=== PATIENT | male | born 1955 | race Caucasian/White ===

== ENCOUNTER 2018-05-12 17:42 | Inpatient (IN) | payer OTHER ==
[~2018-05-12] VITALS: Ht 170.2 cm; Wt 110.6 kg
--- NOTE | ~2018-05-12 | HC ---
[facility] [place] [address] CONSULTATION Name: RICHI DAVALOS Room #: 202-P [facility] IN ..#: [id number] Admission: 05/12/18 Attend Phys: Ramy Villavicencio MD Discharge: Date of : 53 Report #: [id number] THIS REPORT FOR: //name// CC: Ramy Burgess DATE OF SERVICE: 05/14/2018 CHIEF COMPLAINT: Gluteal pressure ulcerations. HISTORY OF PRESENT ILLNESS: This is a 63-year-old male patient who is in the intensive care unit. He was admitted from a nursing care facility with possible dehydration. He was confused, a little bit combative. He does have a history of dementia. He can provide no information about himself at this time. ALLERGIES: INCLUDE ASPIRIN AND PENICILLIN. PAST MEDICAL AND SURGICAL HISTORY: Positive for paranoid schizophrenia with psychosis, anxiety, coronary artery disease, congestive heart failure. He has an AICD pacemaker, COPD, GERD, CKD, PVD with status post aortobifem bypass, left above-knee amputation and history of dementia. SOCIAL HISTORY: The patient has a history of current daily cigarette smoking. No alcohol use. FAMILY HISTORY: Unknown. MEDICATIONS: Include doxycycline, prednisone, atorvastatin, Colace, furosemide, quetiapine, Seroquel, Flexeril, Neurontin, Zyprexa, MiraLax, Altace, Xarelto, Pepcid, K-Dur, Toprol, Mucinex, Risperdal. REVIEW OF SYSTEMS: Unobtainable due to the patient's dementia. PHYSICAL EXAMINATION: VITAL SIGNS: At this time include temperature 97.7, pulse rate of 73, respiratory rate of 15, blood pressure 123/55. GENERAL: This is a chronically ill-appearing male patient who appears to be in no obvious distress. HEENT: Head normocephalic. Nose and throat are clear. NECK: Supple. ABDOMEN: Soft. Bowel sounds present. EXTREMITIES: Demonstrate a left above-knee amputation. He has 2 stage 3 pressure ulcers to the right gluteal region. They are relatively superficial. There is a mix of granulation fibrin, not overtly infected. No exposure of deep structures. [facility] [address] [place] [address] CONSULTATION Name: RICHI DAVALOS Room #: 202-P [facility] IN ..#: [id number] Admission: 05/12/18 Attend Phys: Ramy Villavicencio MD Discharge: Date of : 53 Report #: [id number] CLINICAL IMPRESSION: 1. Stage 3 pressure ulcer to the right gluteal region. 2. Prior right above-knee amputation, now closed. 3. Acute kidney injury. 4. Dementia. 5. Acute on chronic respiratory failure. 6. History of aortobifemoral bypass for severe peripheral arterial disease. 7. History of tobacco use. RECOMMENDATIONS: At this point in time, we will recommend a bordered foam to the buttocks. He will need a low air loss mattress, q. 2 hour turning and positioning, PRAFO boot to the right lower extremity. Aggressive nutrition. Continue current medications. I appreciate being asked to see him in consultation. By: 1520 0021 Richi Ralph MD /nt
[~2018-05-12 17:42] MED LIST: ABILIFY 5 MG TAB5 MG PO; ACETAMINOPHEN325 M1; ACID REDUCER20 MG PO; ALEVE220 MG; ATIVAN0.5 MG; ATIVAN1 MG; ATORVASTATIN CA20 MG PO; CIPRO250 M1 PO; COLACE100 MG PO; DOXYCYCLINE 10100 MG PO; DUONEB 2.5-0.5 M3 ML INH; ENOXAPARIN40 MG/0.1 SUBQ; FLAGYL500 MG PO; FLORANEX GRANU1 EACH PO; FUROSEMIDE 40 M40 M1 PO; HYDROCODON-ACE1 EAC7 PO; HYDROCODONE-AP1 EAC6 PO; KEFLEX500 MG PO; LISINOPRIL2.5 MG PO; LORAZEPAM 1 MG T1 M1 PO; METOPROLOL SUCC25 M1 PO; MIRALAX17 GM PO; MIRALAX255 GM PO; MUCINEX TA600 MG/TA2 PO; PLAVIX 75 MG TA75 M1 PO; POTASSIUM20 PO; PREDNISONE 20 M20 MG PO; QUETIAPINE FUM300 MG PO; RANITIDINE 150150 M1 PO; RISPERDAL 3 MG T3 M1 PO; RISPERDAL0.5 MG; RISPERDAL4 M1 PO; SEROQUEL 100 M100 MG PO; SEROQUEL XR400 MG PO; SEROQUEL400 MG PO
[2018-05-12 17:43] VITALS: BP 118/56
[2018-05-12 18:45] LABS: HEMATOCRIT 53.3 % (42.0-52.0); HEMOGLOBIN 17.7 gm/dL (14.0-18.0); MCH 29.3 pg (26.0-34.0); MCHC 33.3 g/dL (28.0-37.0); MCV 88.1 fL (80.0-100.0); PLATELET COUNT 141 thou/uL (150-400); RBC 6.04 mil/uL (4.50-6.00); RDW 18.8 % (10.5-14.5); WBC 8.2 thou/uL (4.0-11.0)
[2018-05-12 18:56] LABS: ANION GAP 4 mmol/L (7-16); BUN 41 mg/dL (7-18); CALCIUM 8.4 mg/dL (8.5-10.1); CHLORIDE 100 mmol/L (98-107); CO2 32 mmol/L (21-32); CREATININE 1.9 mg/dL (0.7-1.3); GLUCOSE 117 mg/dL (74-106); POTASSIUM 5.1 mmol/L (3.5-5.1); SODIUM 136 mmol/L (136-145)
[2018-05-12 19:00] LABS: TROPONIN-I <0.06 ng/mL (<0.06)
--- NOTE | 2018-05-12 19:11 | NUR ---
MULTIPLE CALLS TO [facility] FOR [facility] WITHOUT ANY CON TACT : CALLS PLACED AT 1825, 182, 182- WAS DISCONNECTED TWICE, PLACED A CALL TO [facility] TO CHECK ON ASSISTED - THEY ARE NOT ABLE TO GO OUT AT PRESENT. CONTACTED EMS [facility][id number] UNIT. MANAGER SCIENTIFIC REPORTS HE NEVER GOT A REPORT FROM NURSE. NO ONE TALKED WITH HIM AT FACILITY. HE STATES PT HAD O2 SAT OF 87 % ON 4 L WHEN HE ARRIVED, HE REPOSITIONED PATIENT AND INCREASED O2 TO 6 L WITH ELEVATION IN SAT TO 93%. HE BELIEVES PT IS ON O2 CONTINUOUSLY. INFORMATION RELAYED TO DR JARAMILLO. JORGE L
--- NOTE | 2018-05-12 19:18 | NUR ---
PT WILL BE ADMITTED
[2018-05-12 19:30] LABS: ANISOCYTOSIS 1+
[2018-05-12 20:07] VITALS: BP 120/68; BP 122/72
[2018-05-12 21:25] VITALS: BP 128/72
[2018-05-12] MEDS ORDERED: TYLENOL EXTRA500 MG PO (23:35)
[2018-05-12] MEDS ORDERED: CYCLOBENZAPRINE5 MG PO (23:37)
[2018-05-12] MEDS ORDERED: DOXYCYCLINE 10100 MG PO (23:41)
[2018-05-12] MEDS ORDERED: NEURONTIN 300300 M1 PO (23:43)
[2018-05-12] MEDS ORDERED: ZYPREXA 5 MG TAB5 M1 PO (23:45)
[2018-05-12] MEDS ORDERED: MIRALAX17 GM PO (23:46)
[2018-05-12] MEDS ORDERED: ALTACE10 MG PO (23:50)
[2018-05-12] MEDS ORDERED: XARELTO20 MG PO (23:54)
[2018-05-12] MEDS ORDERED: AMLODIPINE BESY10 MG PO (23:56)
[2018-05-13] VITALS (14 sets, daily range): BP systolic 104–142; BP diastolic 56–93
[2018-05-13] MEDS ORDERED: PEPCID20 MG PO
[2018-05-13 04:52] LABS: BE(vivo) 3.3 mmol/L (-2 to +3); HCO3 33.8 mmol/L (22.0-26.0); PO2 65.2 mmHg (80.0-100.0); sO2 88.9 % (92.0-98.0)
[2018-05-13 04:53] LABS: pH 7.262 (7.360-7.450)
[2018-05-13 04:54] LABS: PCO2 76.8 mmHg (35.0-45.0)
--- NOTE | 2018-05-13 06:42 | NUR ---
Received pt from ED at 2130. Pt resting in bed. Alert to self. Skin tears on right buttocks. Applied dressing on it. Pt was hard arouse when COMMUNITY ADVOCATE showed up, she order ABG. pH came back 7.26 and pCO2 76.8 so COMMUNITY ADVOCATE order Bipap. Pt has a right forearm IV with NS@80. No identified needs at the moment. Will continue to monitor.
[2018-05-13 07:39] LABS: BE(vivo) 0.2 mmol/L (-2 to +3); HCO3 29.7 mmol/L (22.0-26.0); PCO2 67.9 mmHg (35.0-45.0); PO2 64.4 mmHg (80.0-100.0); pH 7.259 (7.360-7.450); sO2 88.7 % (92.0-98.0)
--- NOTE | 2018-05-13 08:20 | EKG ---
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 : 1955 Requested By: Luis Miguel Oreilly Order Number: [id number] MD: Arnie Schroeder Measurements Intervals [place] Rate: 68 P: 83 WA: 181 QRS: 42 QRSD: 134 T: -12 QT: 376 QTc: 400 Interpretive Statements Sinus rhythm Nonspecific intraventricular conduction delay Borderline T abnormalities, inferior leads Compared to ECG 08/31/2015 21:11:58 Criteria for inferior infarct no longer present Electronically Signed On 05-13-2018 8:19:51 OFFENDER EMPLOYMENT SPECIALIST by Arnie Schroeder [email or web address] <ELECTRONICALLY SIGNED> By: Arnie Schroeder MD, [facility] [id number] Arnie Schroeder MD, [facility] /EPI
--- NOTE | 2018-05-13 09:32 | NUR ---
INSERTED DRISCOLL, STERILE FIELD MAINTAINED. PT TOLERATED WELL. CLINICAL SUPERVISION BY RN. OUTPUT 375 ML. LINENS WERE CHANGED AND BILATERAL UPPPER EXTREMILY RESTRAINTS BACK IN PLACE. PATIENT ORIENTED TO PERSON AND PLACE.
--- NOTE | 2018-05-13 10:04 | NUR ---
WHILE RECEIVNG A REPORT FROM NOC RN AROUND 0700, FOUND OUT PT PUT ON CONT BIPAP DURING NOC, D/T CRITICAL ABG. PER NOC RN, PT IS ALERT AND ORIENTED ONLY TO HIMSELF. CALLED [facility] MAJOR AND NOTIFIED THAT PT HAS TO BE TRANSFERRED TO CRITICAL CARE FLOOR. CALLED AND OBTAINED AN ORDER TO TRANSFER PT TO 3W. WHILE GETTING PT READY FOR 3W, PT BECAME VERY AGITATED AND STARTED TAKING ALL MEDICAL DEVICES AND BIPAP OFF HIMSELF. PT HAD IVF, TELE MONITOR AND BIAPAP ATTACHED TO HIM AWATING TASNSFER. CALLED AND OBTAINED AN ORDER FOR SOFT JOINT RESTRAINTS FOR PT FOR NONVIOLENT BEHAVIORS FOR 24HRS STARTING 730. REPORTED TO [facility] VIA TELEPHONE ABOUT THE RESTRAINT AND TRASFER. REPORT WAS CALLED TO [facility]. TRANSPORT WAS ACCOMPANIED BY RT LUNA FOR SAFE TRASFER AND MAINTAIN BIPAP STATUS DUTING TRANSFER. PT IS NOW IN 364.
[2018-05-13 10:46] LABS: BE(vivo) 5.1 mmol/L (-2 to +3); HCO3 36.9 mmol/L (22.0-26.0); PO2 102.8 mmHg (80.0-100.0); sO2 96.5 % (92.0-98.0)
[2018-05-13 10:47] LABS: PCO2 85.6 mmHg (35.0-45.0); pH 7.252 (7.360-7.450)
--- NOTE | 2018-05-13 13:31 | NUR ---
REPORT RECEIVED FROM [facility] FROM 3W. PT ARRIVED TO UNIT AROUND 1310. PT ON BiPAP AT 18/4 WITH 50% FiO2. PT IS LETHARGIC AND IS NOT RESPONDING TO PHYSICAL STERNAL RUB AT THIS TIME. ASSESSMENT IN CHART. WILL CONT TO MONITOR AND FOLLOW POC.
--- NOTE | 2018-05-13 13:34 | NUR ---
ASSUMED PATIENT CARE FROM [facility]. PATIENT PLACED ON BIPAP AT AROUND 0500. ABGS DRAWN AT 0430, 0730, AND 1050. ABG'S WORSENING AT 1050. DR. CUNHA ORDERED FOR PATIENT TO BE TRANSFERRED TO ICU. REPORT GIVEN TO ASCENCION HERMOSILLO AND PATIENT TRANSFERRED WITH RT'S ASSISTANCE.
[2018-05-13 14:52] LABS: BE(vivo) 2.8 mmol/L (-2 to +3); PO2 82.4 mmHg (80.0-100.0); sO2 94.4 % (92.0-98.0)
[2018-05-13 14:53] LABS: PCO2 72.6 mmHg (35.0-45.0); pH 7.276 (7.360-7.450)
[2018-05-13 15:38] LABS: AMP/METHAMP Negative (Negative); BARBITURATES Negative (Negative); BENZODIAZEPINES Negative (Negative); COCAINE Negative (Negative); METHADONE Negative (Negative); OPIATES Negative (Negative); PCP Negative (Negative)
--- NOTE | 2018-05-13 23:38 | NUR ---
NOTIFIED JEANETTE FLORES OF PT'S CONTINUED RESTLESSNESS AND FIGHTING AGAINST RESTRAINTS, KICKING LEG OVER SIDERAIL AND SLIDING DOWN IN THE BED DESPITE FREQ REPOSITIONING AND ONE DOSE OF HALDOL. ORDER RECEIVED FOR ADDITIONAL DOSE OF HALDOL 5MG IVP.
[2018-05-14] VITALS (15 sets, daily range): BP systolic 96–123; BP diastolic 49–61
[2018-05-14 01:19] LABS: ABSOLUTE NEUTROPHILS 9.1 thou/uL (1.4-8.2); BASOPHILS 0.1 % (0.0-2.0); EOSINOPHILS 0.1 % (0.0-3.0); HEMATOCRIT 52.4 % (42.0-52.0); HEMOGLOBIN 17.4 gm/dL (14.0-18.0); LYMPHOCYTES 3.4 % (24.0-44.0); MCH 29.1 pg (26.0-34.0); MCHC 33.2 g/dL (28.0-37.0); MCV 87.8 fL (80.0-100.0); MONOCYTES 1.5 % (1.0-8.0); PLATELET COUNT 141 thou/uL (150-400); POLYS 94.9 % (36.0-66.0); RBC 5.96 mil/uL (4.50-6.00); RDW 18.5 % (10.5-14.5); WBC 9.5 thou/uL (4.0-11.0)
[2018-05-14 01:26] LABS: CALCIUM 8.8 mg/dL (8.5-10.1); CREATININE 1.5 mg/dL (0.7-1.3); POTASSIUM 5.1 mmol/L (3.5-5.1)
--- NOTE | 2018-05-14 07:26 | NUR ---
ASSUMED CARE OF PT AT 1900. ASSESSMENTS PER DOCUMENTATION. VSS, NO DISTRESS NOTED. MRSA SWAB PENDING. FINGERSTICKS WNL. IV ABX. PT ORIENTED TO SELF ONLY, INCREASED RESTLESSNESS/AGITATION AT HS REQUIRING RESTRAINTS AND HALDOL X2. PT IS A. PACING AT TIMES AND SR 70'S TO SB 50'S, PT DID HAVE ONE RUN OF V TACH 7 BEATS, STRIP PLACED ON CHART. PT ON AVAPS BIPAP MODE, RATE 18, 50% FIO2, KEPT O2 SAT AROUND 90%, PT TOLERATED WELL. PT TOOK HS MEDS W/O DIFFICULTY, NO ISSUES SWALLOWING. ADEQUATE UOP OF 600ML PER DRISCOLL. WOUND CARE CONSULT ENTERED FOR TODAY, 2 OPEN AREAS ON RIGHT BUTTOCK, ATTEMPTED Q2H TURNS BUT PT IS RESTLESS AND SLIDES HIMSELF ALL OVER THE BED. AM LABS WNL.
--- NOTE | 2018-05-14 09:20 | 2DMMODE ---
[facility] [place] [address] 2 D/M-MODE ECHOCARDIOGRAM Name: RICHI DAVALOS Room #: 245-P [facility] IN ..#: [id number] Admission: 05/12/18 Attend Phys: Ramy Villavicencio MD Discharge: Date of : 53 Date of Service: 05/14/18 0920 Report #: [id number] THIS REPORT FOR: //name// APPROVED REPORT Study performed: 05/14/2018 08:15:23 EXAM: Comprehensive 2D, Doppler, and color-flow Echocardiogram Patient Location: ICU Room #: [facility] Status: routine BSA: 2.18 HR: 55 bpm BP: 106/61 mmHg Rhythm: NSR Other Information Study Quality: Fair/poor patient cooperation Technically limited study due to no mobility, patient on BiPAP, obesity. Indications Hypoxia, dyspnea. Hx: AICD, CAD, CHF, CM, HTN, HLP, PVD, left AKA. Echo Enhancing Agent Indication: Endocardial border delineation Agent(s) / Amount(s) Used: Optison 5 cc 2D Dimensions RVDd: 40.31 mm IVSd: 12.42 (7-11mm) LVOT Diam: 22.09 (18-24mm) LVDd: 59.83 mm PWd: 8.59 (7-11mm) Ascending Ao: 34.82 (22-36mm) LVDs: 51.78 (25-40mm) Aortic Root: 33.32 mm Volumes Left Atrial Volume (Systole) Single Plane 4CH: 40.34 mL Single Plane 2CH: 57.57 mL LA ESV Index: 20.00 mL/m2 Aortic Valve AoV Peak Delfino.: 2.26 m/s AO Peak Gr.: 20.39 mmHg LVOT Max P.90 mmHg [facility] [place] [address] 2 D/M-MODE ECHOCARDIOGRAM Name: RICHI DAVALOS Room #: 245-P [facility] IN M.R.#: [id number] Admission: 05/12/18 Attend Phys: Ramy Villavicencio MD Discharge: Date of : 53 Date of Service: 05/14/18 0920 Report #: [id number] Mean Gr.: 12.53 mmHg AO V2 Mean: 1.66 m/s LVOT Max V: 0.85 m/s AO V2 VTI: 50.59 cm CHIRAG Vmax: 1.45 cm2 Mitral Valve E/A Ratio: 1.2 MV Decel. Time: 163.99 ms MV E Max Delfino.: 0.96 m/s MV A Delfino.: 0.83 m/s MV PHT: 47.56 ms IVRT: 73.82 ms Pulmonary Valve PV Peak Delfino.: 1.02 m/s PV Peak Gr.: 4.18 mmHg Tricuspid Valve TR Peak Delfino.: 3.31 m/s RAP Estimate: 15.00 mmHg TR Peak Gr.: 43.70 mmHg PA Pressure: 59.00 mmHg Left Ventricle Left ventricle is mildly dilated. Mild septal hypertrophy is present. Left ventricular systolic function is moderately decreased. Inferior and inferolateral akinesis LVEF is 35%. Moderate diastolic dysfunction is present (pseudonormal filling). Right Ventricle The right ventricle is normal size. The right ventricular systolic function is normal. Device lead is present in the right ventricle. Atria The left atrium size is normal. The right atrium size is normal. Aortic Valve Aortic valve is mildly calcified. No aortic regurgitation is present. There is mild valvular aortic stenosis. Calculated aortic valve area is 1.4 cm2 with maximum pressure gradient of 20 mmHg and mean pressure gradient of 13 mmHg. Mitral Valve The mitral valve is normal in structure. Mild mitral regurgitation. Tricuspid Valve [facility] [address] [place] [address] 2 D/M-MODE ECHOCARDIOGRAM Name: RICHI DAVALOS Room #: 245-P [facility] IN ..#: [id number] Admission: 05/12/18 Attend Phys: Ramy Villavicencio MD Discharge: Date of : 53 Date of Service: 05/14/18 0920 Report #: [id number] The tricuspid valve is normal in structure. Mild to moderate tricuspid regurgitation. Estimated PAP is 55-60mmHg. Pulmonic Valve The pulmonary valve is normal in structure. Trace pulmonic regurgitation. Great Vessels The aortic root is normal in size. The ascending aorta is normal in size. IVC is dilated and collapses <50% with inspiration. Pericardium There is no pericardial effusion. <Conclusion> Left ventricular systolic function is moderately decreased. Inferior and inferolateral akinesis LVEF is 35%. Moderate diastolic dysfunction Device lead is present in the right ventricle. Aortic valve is mildly calcified, mild valvular aortic stenosis, no insufficiency. Calculated aortic valve area is 1.4 cm2 with maximum pressure gradient of 20 mmHg and mean pressure gradient of 13 mmHg. The mitral valve is normal in structure. Mild mitral regurgitation. Mild to moderate tricuspid regurgitation. Estimated pulmonary artery presusre of 55-60mmHg. There is no pericardial effusion. <ELECTRONICALLY SIGNED> By: Arnie Schroeder MD, FACC 05/14/18919 9 9 Arnie Schroeder MD, FACC /INF
[2018-05-14 11:26] LABS: BE(vivo) 6.9 mmol/L (-2 to +3); HCO3 35.3 mmol/L (22.0-26.0); PCO2 63.3 mmHg (35.0-45.0); PO2 74.2 mmHg (80.0-100.0); pH 7.364 (7.360-7.450); sO2 94.1 % (92.0-98.0)
--- NOTE | 2018-05-14 15:05 | NUR ---
Case opened to follow for dc planning. Pt is currently in ICU and was on confused and on bipap this am. He is more alert this afternoon. He is a retirement care resident at [facility] and has lived there since 2010. He is currently on their locked behavioral unit d/t his mental health dx. He utilizes a w/c d/t a lt AKA in 2017. He has a complex medical history. His sister Luba is the primary contact and is noted to be his dpoa; however no document is on file. Sleeping Car Service Attendant spoke with admissions at the facility and they are holding his bed and will see if they can fax supporting documentation from his chart. He has another sister Jane and two brothers. Psych consult noted d/t aggitation. Will follow along and assist with his return to terminal gauger supervisor care when medically stable. Message to contact luis antonio left for sister Luba. Will follow.
--- NOTE | 2018-05-14 17:02 | NUR ---
WOUND CONSULT: PT. WAS SEEN TODAY BY DR. WOOD AND MYSELF. PT. HAS STAGE 3 PRESSURE ULCER TO HIS RIGHT BUTTOCK. THERE ARE NO SIGNS OR SYMPTOMS ASSOCIATED WITH THE WOUND AT THIS TIME. RECOMMENDATIONS: WOUND CARE TO RIGHT BUTTOCK: GENTLY CLEANSE WITH WOUND CLEANSER OR NORMAL SALINE, COVER WITH OPTIFOAM BORDER, COMPLETE CARES M/W/F AND PRN SOILAGE. PT. AND STAFF NURSE WERE INSTRUCTED ON WOUND CARE.
--- NOTE | 2018-05-14 18:25 | NUR ---
SPOKE WITH DR MALIK AT BEDSIDE REGARDING INCREASED AGGITATION AND RESTLESSNESS, GAVE PRN DOSE OF ZYPREXA. PT CURRENTLY IN RESTRAINTS AT THIS TIME. WILL MONITOR CLOSELY.
--- NOTE | 2018-05-14 19:39 | HC ---
[facility] [place] [address] CONSULTATION Name: RICHI DAVALOS Room #: 245-P [facility] IN .R.#: [id number] Admission: 05/12/18 Attend Phys: Ramy Villavicencio MD Discharge: Date of : 53 Report #: [id number] THIS REPORT FOR: //name// CC: Ramy Burgses DATE OF SERVICE: 05/13/2018 REFERRAL PHYSICIAN: Dr. Villavicencio. REASON FOR REFERRAL: Acute respiratory distress. HISTORY OF PRESENT ILLNESS: The patient is a 63-year-old [facility] patient with dementia, brought to the Emergency Room with unclear complaints. Eventually, the reason for the referral was for IV placement. The patient was subsequently admitted for dehydration, acute kidney injury. Overnight, the patient developed worsening respiratory status. A pulmonary consultation was requested. As mentioned above, [facility]. He was brought to the Emergency Department with unclear complaints. It was apparent that they needed an IV access in this patient. In the process of evaluation, electrolytes showed acute kidney injury along with some component of dehydration. The patient is a poor historian. He has a history of paranoid schizophrenia along with coronary artery disease, COPD. Early this morning, the patient was found to be hypoxic, dyspneic. BiPAP was placed. He was in telemetry. He was subsequently transferred to critical care tele on BiPAP. When I was asked to see the patient, he is on BiPAP, but not responsive with sternal stimuli. He was eventually transferred to the ICU. PAST MEDICAL HISTORY: Notable for paranoid schizophrenia, anxiety disorder, coronary artery disease, cardiomyopathy, hypertension, status post pacemaker placement, COPD, gastroesophageal reflux disease, chronic kidney disease, peripheral artery disease, undergoing aortobifemoral bypass surgery in 2013 with a left femoral graft placement in 2016, history of hyperlipidemia. ALLERGIES: ASPIRIN AND PENICILLIN, REACTIONS NOT SPECIFIED. MEDICATIONS: From the [facility] include lorazepam, Cipro, Flagyl, DuoNeb, Lovenox, Colace, Lasix, quetiapine, Keflex, Seroquel, potassium chloride, Toprol-XL, Abilify, Mucinex, Risperdal. [address] [address] CONSULTATION Name: RICHI DAVALOS Room #: 245-P [facility] IN ..#: [id number] Admission: 05/12/18 Attend Phys: Ramy Villavicencio MD Discharge: Date of : 53 Report #: [id number] FAMILY HISTORY: Unknown. SOCIAL HISTORY: The patient apparently continues to smoke. No history of alcohol use. He is a [facility]. REVIEW OF SYSTEMS: Deferred as the patient is somnolent, although along with apparent history of dementia. PHYSICAL EXAMINATION: GENERAL: He is somnolent, not arousable easily. VITAL SIGNS: Temperature is 97 degrees Fahrenheit, pulse is 70, respiratory rate is 14, blood pressure 140/79 mmHg and saturation 96%. HEENT: Normocephalic, atraumatic. NECK: Supple, without lymphadenopathy or thyromegaly. CHEST: Breath sounds are fair, mild coarse breath sounds in the bases. No obvious wheezes. CARDIOVASCULAR: Normal S1, S2. There are no murmurs or gallop. There is no JVD. There is no carotid bruit. Pulses are 2+/4+ bilaterally. ABDOMEN: Soft, nontender, no organomegaly or masses felt. GENITOURINARY: Deferred. RECTAL: Deferred. EXTREMITIES: No cyanosis, clubbing or edema. NEUROLOGIC: Again, he is obtunded at this time. LABORATORY DATA: Chest x-ray shows cardiomegaly, increased pulmonary vascular markings. BNP 947. Troponin is normal. Arterial blood gas earlier this morning revealed pH 7.26, pCO2 of 76, pO2 of 65. Repeat arterial blood gas revealed pH 7.25, pCO2 of 85, pO2 of 100 on FiO2 of 60% on BiPAP. Electrolytes: Sodium 136, potassium 5.1, chloride 100, CO2 32, BUN is 41, creatinine is 1.9. WBC 8200, hemoglobin 17.7, platelets are mildly reduced. IMPRESSION: 1. Tqrok-vr-hvxvrtc hypercapnic hypoxic respiratory failure in this 63-year-old white male. Etiology probably related to encephalopathy along with underlying chronic obstructive pulmonary disease exacerbation. 2. Chronic obstructive pulmonary disease exacerbation. 3. Paranoid schizophrenia with encephalopathy at present. 4. Acute kidney injury/chronic kidney disease. 5. Apparent history of dementia. This may need to be reassessed. 6. Borderline polycythemia. 7. Increase in vascular markings, unclear whether the patient truly has infiltrates. 8. History of coronary artery disease, cardiomyopathy, status post permanent pacemaker placement. 9. Gastroesophageal reflux disease. 10. Peripheral artery disease. [address] [place] [address] CONSULTATION Name: RICHI DAVALOS Room #: 245-P [facility] IN M.R.#: [id number] Admission: 05/12/18 Attend Phys: Ramy Villavicencio MD Discharge: Date of : 53 Report #: [id number] RECOMMENDATION: We will continue BiPAP for now, agree with corticosteroids, bronchodilators, wean O2 for saturation 90%. Follow electrolytes closely along with the urine output. DVT and GI prophylaxis is recommended. Thank you for this consultation. <ELECTRONICALLY SIGNED> By: Wilmer Chapin MD 05/14/18 [id number] Wilmer Chapin MD /nt
--- NOTE | 2018-05-14 22:30 | NUR ---
SPOKE W/ DR. CUNHA AND JEANETTE Fletcher PT CAN TRANSFER TO CCT W/ SITTER 1:1
[2018-05-15] VITALS (15 sets, daily range): BP systolic 104–136; BP diastolic 52–80
[2018-05-15 04:40] LABS: ABSOLUTE NEUTROPHILS 11.1 thou/uL (1.4-8.2); BASOPHILS 0.1 % (0.0-2.0); HEMATOCRIT 58.4 % (42.0-52.0); HEMOGLOBIN 18.8 gm/dL (14.0-18.0); LYMPHOCYTES 5.1 % (24.0-44.0); MCH 28.5 pg (26.0-34.0); MCHC 32.2 g/dL (28.0-37.0); MCV 88.6 fL (80.0-100.0); MONOCYTES 6.3 % (1.0-8.0); PLATELET COUNT 131 thou/uL (150-400); POLYS 88.5 % (36.0-66.0); RBC 6.59 mil/uL (4.50-6.00); RDW 18.9 % (10.5-14.5); WBC 12.5 thou/uL (4.0-11.0)
[2018-05-15 04:51] LABS: CALCIUM 9.1 mg/dL (8.5-10.1); CREATININE 1.6 mg/dL (0.7-1.3); MAGNESIUM 2.3 mg/dL (1.8-2.4); POTASSIUM 4.8 mmol/L (3.5-5.1); TOTAL BILIRUBIN 0.9 mg/dL (<0.1-1.0); TOTAL PROTEIN 8.4 g/dL (6.4-8.2)
--- NOTE | 2018-05-15 05:35 | NUR ---
ASSUMED CARE OF PT AT 1900. ASSESSMENTS PER DOCUMENTATION. VSS, NO DISTRESS NOTED. PT ON 8L HIGH FLOW NC W/ SATS 89-93%. PT RESTLESS BUT ALSO HAS PERIODS OF BEING INTERMITTENTLY PLEASANT. ADVANCED DIET TOLERATED, NO S/S ASPIRATION. PT STILL REMAINS CONFUSED AND IN RESTRAINTS, PT DID GRAB DRISCOLL CATHETER AT ONE POINT AND WAS PULLING IT, URINE WAS NOTED TO BE BLOOD TINGED FOR A WHILE BUT HAS CLEARED UP THIS MORNING. PT DOES FOLLOW COMMANDS AND GRAVES. PT REMAINS IN NSR/SB AND A. PACED AT TIMES. MINIMAL EDEMA. PT WAS INCONTINENT OF ONE SMALL BM OVERNIGHT. ADEQUATE UOP PER DRISCOLL. PT DOED HAVE 2 SMALL AREAS ON RIGHT BUTTOCK COVERED W/ OPTIFOAM, ATTEMPTED Q2H TURNS BUT PT MOVES INDEPENDENTLY FREQUENTLY. PT WAS ABLE TO BE REDIRECTED MORE TONIGHT THAN PREVIOUS SHIFTS. PT DID REQUIRE ONE PRN DOSE OF OLANZIPINE.
--- NOTE | 2018-05-15 09:53 | NUR ---
Assess due to notification of pressure ulcer-has Stage III to coccyx, followed by wound care team. Hx schizophrenia. Requires restraints, sitter. Typically eats well. Some variations in wts but no concerns. Will order bradley bid, otherwise low nutrition risk
--- NOTE | 2018-05-15 10:13 | NUR ---
PATIENT HAS BEEN QUITE THIS AM. CONT ON RESTRAINTS FOR AGITATION. HE DENIES PAIN AT THIS TIME. ATE BREAKFAST 100%. CONT ON OXY VIA NC. WILL CONT WITH PLAN OF CARE.
--- NOTE | 2018-05-15 12:41 | NUR ---
WOUND FOLLOW UP: PT. WAS SEEN TODAY BY DR. BAGLEY AND MYSELF. PT. WOUND IS STABLE AT THIS TIME. RECOMMENDATIONS: CONTINUE WITH CURRENT PLAN OF CARE. PT. AND STAFF NURSE WERE INSTRUCTED ON PLAN OF CARE.
--- NOTE | 2018-05-15 15:23 | NUR ---
Following for d/c planning needs. Called flight operation coordinator at [facility] (Avis Koroma) and was given phone numbers for several family members. Called pt's sister Luba Castro ([phone]) and left message. Called pt's sister Tona Cutcarmel ([phone]) and that is not working number. Was also given phone number for Adry (unknown family member) ([phone]) and that also is not working number. Called Hank Dave, who is listed at facility as POA ([phone]). Hank said that he is pt's family, and he was not aware that he is listed as POA. Hank said he would try to get in contact with pt's sister Luba to have her call the hospital. Will remain available to assist as needed.
--- NOTE | 2018-05-15 19:04 | NUR ---
END OF SHIFT NOTE. PT REMIANS VERY CONFUSED TODAY. BITING TRHROUGH MULTIPLE THINGS. UNRESTRAINED FOR MEALS AND FEEDS SELF. REMIANS ON 6L. DIFFICULT TO MAINTAIN SAT, PT CONSTANTLY TAKING IT OFF. VS OTHERWISE STABLE.
[2018-05-15 23:09] LABS: GLYCOHEMOGLOBIN (HGB A1C) 6.8 % (4.8-5.6)
--- NOTE | 2018-05-16 01:46 | NUR ---
CALLED REPORT AT 0146. PATIENT IS ALERT TO SELF. PATIENT IS ON 5L HIGH FLOW NC. PATIENT HAS A DRISCOLL. PATIENT IS BARRY ON TELE A PACED. PAITENT IS IN RESTRAINTS FOR INTERFERANCE WITH EQUIPMENT. PATIENT DENIES PAIN. PATIENT IS CONFUSED BUT PLEASENT. PATIENT IS BEING TRANSFER TO CCU WCM. PATIENT IS PROGRESSING TO GOALS.
[2018-05-16 04:05] VITALS: BP 127/75
--- NOTE | 2018-05-16 05:32 | NUR ---
ASSUME CARE 0230. PT/VITALS STABLE. PT ONLY ALERT TO PERSON. WHEEL CHAIR BOUND BUT MOVES IN BED BY SELF. LEFT AKA. ASSESSMENT AAS CHARTED. PT IN RESTRAINTS AND FURTHER ASSESSMETN TO BE DONE TO SEE IF RESTRAINTS ARE TO BE TAKE OFF. SITTER NEEDED TO MONITOR PT. PT SEEMS CALM AND IS REST WELL. WILL CONTINUE TO MONITOR AND FOLLOW WITH POC
[2018-05-16 05:54] LABS: HEMATOCRIT 52.7 % (42.0-52.0); HEMOGLOBIN 17.3 gm/dL (14.0-18.0); MCH 28.8 pg (26.0-34.0); MCHC 32.8 g/dL (28.0-37.0); MCV 87.7 fL (80.0-100.0); RBC 6.01 mil/uL (4.50-6.00); RDW 18.5 % (10.5-14.5); WBC 9.5 thou/uL (4.0-11.0)
[2018-05-16 06:06] LABS: ALBUMIN 2.5 g/dL (3.4-5.0); CALCIUM 8.7 mg/dL (8.5-10.1); CREATININE 1.3 mg/dL (0.7-1.3); PHOSPHORUS 4.1 mg/dL (2.5-4.9); POTASSIUM 4.6 mmol/L (3.5-5.1)
[2018-05-16 08:34] VITALS: BP 138/66
--- NOTE | 2018-05-16 11:44 | NUR ---
FAXED CLINICAL UPDATE TO LIZ AT CENTER SHE RECEIVED UPDATE AND NOTIFIED HER OF POSS.DC SATURDAY. DCP TO FOLLOW.
[2018-05-16 12:31] VITALS: BP 133/65
--- NOTE | 2018-05-16 12:58 | NUR ---
Message rec'd from the pt's sister Luba as she was attempting to return CM's call from yesterday. Message left for pt's sister Luba and alerted her to possible dc back to [facility] on Saturday. Nursing indicates that they spoke with the pt's sister earlier today also. Will follow.
--- NOTE | 2018-05-16 16:49 | NUR ---
WOUND FOLLOW UP: PT. WAS SEEN TODAY BY DR. WOOD AND MYSELF. PT. WOUND IS CLINICALLY BETTER TODAY. RECOMMENDATIONS: CONTINUE WITH CURRENT PLAN OF CARE. PT. AND STAFF NURSE WERE INSTRUCTED ON PLAN OF CARE.
[2018-05-16 19:15] VITALS: BP 122/66
[2018-05-17 03:46] VITALS: BP 125/71
[2018-05-17 05:32] LABS: ALBUMIN 2.7 g/dL (3.4-5.0); CREATININE 1.4 mg/dL (0.7-1.3)
[2018-05-17 07:10] VITALS: BP 143/82
--- NOTE | 2018-05-17 07:52 | NUR ---
ASSUME CARE 1900. PT STABLE. DENIES ANY PAIN. A/O TO PERSON ONLY. DENIES ANY PAIN. RESTING WELL THROUGH THE NIGHT. SITTER IN ROOM WITH PATIENT. PT SEEMS CALM WITH NO AGITATION BUT PULLS ON MEDICAL EQUIPMENT FROM TIME TO TIME. WILL CONTINUE TO MONITOR AND FOLLOW WITH POC
[2018-05-17 12:00] VITALS: BP 123/73
[2018-05-17 16:05] VITALS: BP 98/56
[2018-05-17 19:33] VITALS: BP 116/60
[2018-05-18 03:38] VITALS: BP 110/49
--- NOTE | 2018-05-18 04:02 | NUR ---
ASSESSMENTS CHARTED. SITTER CANCELLED AT START OF SHIFT. PATIENT HAS BEEN APPROPRIATE DURING SHIFT. PLAN OF CARE IS TO DISCHARGE BACK TO [facility] ON SATURDAY.
[2018-05-18 07:20] VITALS: BP 131/71
[2018-05-18 11:55] VITALS: BP 128/66
[2018-05-18 15:55] VITALS: BP 115/60
--- NOTE | 2018-05-18 16:52 | NUR ---
assessments as documented. pt alert and oriented to self only. confused/forgetful but pleasant. no episodes of agitation. sinus rhythm/duane on the monitor - occasionally A-paced. denies any pain or discomfort. javier removed per dr. yusuf. plan for patient to discharge back to facility tomorrow 03/18.
[2018-05-18 20:10] VITALS: BP 119/62
[2018-05-19 04:30] VITALS: BP 129/67
--- NOTE | 2018-05-19 06:19 | NUR ---
ASSESSMENTS CHARTED. PATIENT CONTINUES TO DIURESE DURING SHIFT. USING URNINAL. PLAN OF CARE IS TO CONINUE DIRURESING. SCHEDULED TO RETURN TO SNF TODAY.
[2018-05-19 07:20] VITALS: BP 125/72
[2018-05-19] MEDS ORDERED: SEROQUEL 100 M100 M1 PO (08:31)
[2018-05-19] MEDS ORDERED: ZYPREXA 5 MG TAB5 M1 PO (08:31)
[2018-05-19] MEDS ORDERED: PREDNISONE 20 M20 MG PO (08:32)
--- NOTE | 2018-05-19 11:03 | NUR ---
PT. DISCHARGING TODAY TO [facility] FAXED DC ORDERS/SUMMARY TO FACILITY SPOKE WITH LIZ IN ADM. SHE RECEIVED DC ORDERS AND SET UP TRANSPORTATION VIA [facility] FOR 1200 TODAY. DCP NOTIFIED SISTER (SIIAH) OF DISCHARGE AND TIME OF TRANSPORT. UNIT NOTIFIEID AND CHART COPY PER US. RN TO CALL REPORT TO [phone].
[2018-05-19 12:00] VITALS: BP 113/53
--- NOTE | 2018-05-19 14:28 | NUR ---
ASSESSMENTS DOCUMENTED. PT ALERT AND ORIENTED TO SELF - FORGETFUL AND CONFUSED BUT NO SIGNS OF AGITATION. SINUS RHYTH/BARRY ON THE MONITOR. APACED AT TIMES. DENIES ANY PAIN OR DISCOMFORT. REMAINS ON 6L OXYGEN NC TO MAINTAIN SATS GREATER THAN 90. DISCHARGE ORDERS BY DR. TOMLINSON. PT TO TRANSFER BACK TO [facility]. REPORT GIVEN TO RECIEVING NURSE AT FACILITY. BELONGINGS PACKED UP. DISCHARGE WOUND PICTURE TAKEN AND IN PT CHART. WAITING FOR TRANSPORTATION.
--- NOTE | 2018-05-19 16:30 | NUR ---
WOUND FOLLOW UP: PT. WAS SEEN TODAY BY DR. WOOD AND MYSELF. PT. WOUND IS CLINICALLY BETTER AT THIS TIME. RECOMMENDATIONS: CONTINUE WITH CURRENT PLAN OF CARE. PT. AND STAFF NURSE WERE INSTRUCTED ON PLAN OF CARE.
--- NOTE | 2018-05-19 18:23 | NUR ---
pt discharged to facility at 1800 in his own wheelchair with [facility] staff. iv taken out. tele monitor off. sent with belongings patient.
== END 2018-05-19 18:30 | DRG 682 ==
LOC: ER 17:42 → ICU 19:28 → 2N 19:28 → EROBS 19:28 → 4W 19:28 → 3W 05-13 08:17 → ICU 05-13 13:07 → 2N 05-16 02:25
PROVIDERS: Emergency Medicine; Hospitalist; Internal Medicine Pulmonary Disease; Nurse Practitioner Acute Care; Nurse Practitioner Family; ADMIT Hospitalist
PROC: 5A09357 Assistance with Respiratory Ventilation, Less than 24 Consecutive Hours, Continuous Positive Airway Pressure (ICD-10-PCS; principal; 2018-05-13)
DX: N17.9 Acute kidney failure, unspecified (principal); L89.213 Pressure ulcer of right hip, stage 3; J96.21 Acute and chronic respiratory failure with hypoxia; J96.22 Acute and chronic respiratory failure with hypercapnia; I13.0 Hypertensive heart and chronic kidney disease with heart failure and stage 1 through stage 4 chronic kidney disease, or unspecified chronic kidney disease; I42.9 Cardiomyopathy, unspecified; F20.0 Paranoid schizophrenia; J44.1 Chronic obstructive pulmonary disease with (acute) exacerbation; G93.40 Encephalopathy, unspecified; E87.2 Acidosis; F05 Delirium due to known physiological condition; F41.9 Anxiety disorder, unspecified; D75.1 Secondary polycythemia; G62.9 Polyneuropathy, unspecified; I25.10 Atherosclerotic heart disease of native coronary artery without angina pectoris; I50.9 Heart failure, unspecified; N18.9 Chronic kidney disease, unspecified; K21.9 Gastro-esophageal reflux disease without esophagitis; F03.90 Unspecified dementia, unspecified severity, without behavioral disturbance, psychotic disturbance, mood disturbance, and anxiety; I73.9 Peripheral vascular disease, unspecified; E78.5 Hyperlipidemia, unspecified; F17.210 Nicotine dependence, cigarettes, uncomplicated; Z95.810 Presence of automatic (implantable) cardiac defibrillator; Z95.820 Peripheral vascular angioplasty status with implants and grafts; Z79.899 Other long term (current) drug therapy; Z88.0 Allergy status to penicillin; Z88.6 Allergy status to analgesic agent; Z89.611 Acquired absence of right leg above knee; Z71.6 Tobacco abuse counseling
CPT/HCPCS: 10045; 10078; 10797

== ENCOUNTER 2018-05-30 19:26 | Emergency (ER) | payer OTHER ==
[~2018-05-30 19:26] MED LIST changes: +ALTACE10 MG PO; +AMLODIPINE BESY10 MG PO; +CYCLOBENZAPRINE5 MG PO; +NEURONTIN 300300 M1 PO; +PEPCID20 MG PO; +SEROQUEL 100 M100 M1 PO; +TYLENOL EXTRA500 MG PO; +XARELTO20 MG PO; +ZYPREXA 5 MG TAB5 M1 PO
[2018-05-30 19:40] VITALS: BP 00/00
== END 2018-05-31 05:24 ==
LOC: ER 19:26
DX: I46.9 Cardiac arrest, cause unspecified (principal); F17.210 Nicotine dependence, cigarettes, uncomplicated; F20.0 Paranoid schizophrenia; F41.9 Anxiety disorder, unspecified; I25.10 Atherosclerotic heart disease of native coronary artery without angina pectoris; J44.9 Chronic obstructive pulmonary disease, unspecified; K21.9 Gastro-esophageal reflux disease without esophagitis; I13.0 Hypertensive heart and chronic kidney disease with heart failure and stage 1 through stage 4 chronic kidney disease, or unspecified chronic kidney disease; N18.9 Chronic kidney disease, unspecified; I50.9 Heart failure, unspecified; I73.9 Peripheral vascular disease, unspecified; E78.5 Hyperlipidemia, unspecified; F03.90 Unspecified dementia, unspecified severity, without behavioral disturbance, psychotic disturbance, mood disturbance, and anxiety; Z88.6 Allergy status to analgesic agent; Z88.0 Allergy status to penicillin